=== PATIENT | male | born 1995 | race Caucasian/White ===

== ENCOUNTER 2016-12-01 14:41 | Emergency (ER) | payer MEDICAID | END 2016-12-01 17:10 | disposition home or self-care (01) | LOC: D.ER 14:41 | DX: S83.92XA Sprain of unspecified site of left knee, initial encounter (principal); X58.XXXA Exposure to other specified factors, initial encounter; Y93.67 Activity, basketball; Y92.89 Other specified places as the place of occurrence of the external cause; F17.200 Nicotine dependence, unspecified, uncomplicated ==

== ENCOUNTER → 2019-07-27 13:44 | Outpatient (CLI) | payer BC | END | disposition home or self-care (01) | LOC: D.HCCECHO 13:44 | PROVIDERS: ATTEND Internal Medicine Interventional Cardiology | DX: R00.2 Palpitations (principal) ==

== ENCOUNTER 2020-11-30 23:59 | Emergency (ER) | payer SELFPAY ==
[~2020-11-30] VITALS: Ht 185.4 cm; Wt 77.3 kg
[2020-12-01 00:06] VITALS: Ht 185.4 cm; Wt 77.3 kg
[2020-12-01] MEDS ORDERED: CLEOCIN HCL300 MG PO (00:43)
[2020-12-01] MEDS ORDERED: HYDROCODONE-AC1 EAC2 PO (00:43)
[2020-12-01 01:03] VITALS: BP 107/64
== END 2020-12-01 01:02 | disposition home or self-care (01) ==
LOC: D.ER 23:59
DX: S81.832A Puncture wound without foreign body, left lower leg, initial encounter (principal); W34.00XA Accidental discharge from unspecified firearms or gun, initial encounter; Y93.9 Activity, unspecified; Y92.9 Unspecified place or not applicable